=== PATIENT | male | born 1980 | race Caucasian/White ===

== ENCOUNTER 2017-08-21 16:24 | Emergency (ER) | payer MEDICAID ==
[~2017-08-21] VITALS: Ht 157.5 cm; Wt 74.0 kg
[2017-08-21 20:01] VITALS: BP 129/89
== END 2017-08-21 20:08 | disposition home or self-care (01) ==
LOC: ER 16:52
DX: J06.9 Acute upper respiratory infection, unspecified (principal)
CPT/HCPCS: 99283

== ENCOUNTER 2022-05-02 09:19 | Emergency (ER) | payer MEDICAID ==
[~2022-05-02] VITALS: Ht 162.6 cm; Wt 73.0 kg
[2022-05-02] MEDS ORDERED: IBUPROFEN 600MG TABLET PO STA (10:56)
[2022-05-02] MEDS ORDERED: PENICILLIN G BENZATHINE 2,400,000 UNITS/4ML SYR IM ONE (11:30)
[2022-05-02] MEDS ORDERED: CEFTRIAXONE SODIUM 500 MG/VIAL IM ONE (11:30)
[2022-05-02 12:09] LABS: CHLORIDE 101 mEq/L (98-107)
[2022-05-02 12:19] LABS: HEMATOCRIT. 44.3 % (42.0-52.0); HEMOGLOBIN. 15.9 g/dL (14.0-18.0); MEAN CORPUSCULAR HEMOGLOBIN 32.2 pg (28.0-32.0); MEAN CORPUSCULAR VOLUME 89.6 fL (80.0-94.0); MEAN PLATELET VOLUME 6.5 fl (7.4-10.4); PLATELET 235 x1000/uL (130-400); RED BLOOD CELL COUNT 4.95 mill/uL (4.7-6.1); RED CELL DISTRIBUTION WIDTH 13.4 % (11.6-14.6)
[2022-05-02 12:30] LABS: CLARITY URINE CLEAR (CLEAR); COLOR URINE YELLOW (YELLOW); KETONES URINE 3+ (NEGATIVE); LEUKOCYTE ESTERASE URINE NEGATIVE (NEGATIVE); NITRITE URINE NEGATIVE (NEGATIVE); OCCULT BLOOD URINE 1+ (NEGATIVE); PROTEIN URINE 1+ (NEGATIVE); SPECIFIC GRAVITY URINE 1.024 (1.005-1.030)
[2022-05-02 13:15] LABS: PLATELET ESTIMATE NORMAL
[2022-05-02 13:52] VITALS: BP 126/82
[2022-05-02] MEDS ORDERED: DOXY-326 PO (14:15)
[2022-05-02] MEDS ORDERED: IBUP-2029 PO (14:15)
== END 2022-05-02 14:37 | disposition home or self-care (01) ==
LOC: ER 09:19
DX: R10.2 Pelvic and perineal pain (principal); R59.0 Localized enlarged lymph nodes
CPT/HCPCS: 36415; 80048; 81003; 85025; 86592; 87491; 87591; 87593; 96372; 99284; J0561; J0696